=== PATIENT | male | born 1965 | race Caucasian/White ===

== ENCOUNTER → 2018-02-09 | Outpatient (CLI) | payer BC ==
[~2018-02-09] MED LIST: ASPI-1012 PO; CARV3.12 PO; ESOM20CA34 PO; FURO-152 PO; ONDA8TAB8 PO; PRAV40TA3 PO; SPIR25TA6 PO; TRAM50TA4 PO
== END | disposition home or self-care (01) ==
LOC: SHCH 09:00
PROVIDERS: ATTEND Internal Medicine Cardiovascular Disease
DX: I25.5 Ischemic cardiomyopathy (principal); R00.0 Tachycardia, unspecified
CPT/HCPCS: 78481; A9512

== ENCOUNTER → 2019-01-07 | Outpatient (CLI) | payer BC | END | disposition home or self-care (01) | LOC: SHCH 15:54 | PROVIDERS: ATTEND Internal Medicine Cardiovascular Disease | DX: I25.2 Old myocardial infarction (principal); I50.22 Chronic systolic (congestive) heart failure | CPT/HCPCS: 93306 ==

== ENCOUNTER → 2025-04-21 | Outpatient (CLI) | payer OTHER, SELFPAY ==
[~2025-04-21] MED LIST changes: -PRAV40TA3 PO; +PRAV40TA62 PO
--- NOTE | 2025-04-22 17:01 | HMCIMG ---
LUMBAR W FLEXION/EXTENSION REASON: RADICULOPATHY, VERTEBROGENIC LBP. COMPARISON: None TECHNIQUE: 4 images of the lumbar spine were obtained including flexion and extension views. FINDINGS: There is straightening of normal lordotic lumbar curvature which may be related to muscle spasm or positioning. No evidence of fracture or dislocation is seen. IMPRESSION: No loss of vertebral height is seen.
== END | disposition home or self-care (01) ==
LOC: RAH 15:51
PROVIDERS: ATTEND Physical Medicine & Rehabilitation
DX: M54.16 Radiculopathy, lumbar region (principal); M54.51 Vertebrogenic low back pain
CPT/HCPCS: 72114